=== PATIENT | female | born 1975 | race Hispanic/Latino ===

== ENCOUNTER 2018-12-24 01:09 | Inpatient (IN) ==
[2018-12-24 02:42] LABS: BASO# 0.08 X1000 (0.0-0.2); BASO% 0.5 % (0.0-0.8); EOS# 0.04 X1000 (0.0-0.7); EOS% 0.2 % (0.0-10.0); HEMATOCRIT 24.9 % (37.0-47.0); HEMOGLOBIN 6.3 g/dL (12.0-16.0); IMM GRAN# 0.03 X1000 (0.0-0.04); IMM GRAN% 0.2 % (0.0-0.5); LYMPH# 0.94 X1000 (1.2-3.4); LYMPH% 5.5 % (20.5-51.1); MCHC 25.3 g/dL (33-37); MCV 55.3 FL (81-99); MONO# 0.69 X1000 (0.11-0.59); NEUT# 15.46 X1000 (1.4-6.5); NEUT% 89.6 % (42.2-75.2); PLT 640 X1000 (130-400); RDW 22.4 % (11.5-14.5); WBC 17.24 X1000 (4.8-10.8)
[2018-12-24 02:48] LABS: ESTIMATED GFR > 60
[2018-12-24 02:49] LABS: AGAP 10; ALBUMIN 4.1 g/dL (3.5-5.0); ALKALINE PHOSPHATASE 70 U/L (32-104); BUN 19 mg/dL (8-22); CALCIUM 8.7 mg/dL (8.8-10.2); CHLORIDE 97 mmol/L (98-107); COSMO 289; CREATININE 0.7 mg/dL (0.5-0.9); GOT 10 U/L (10-30); GPT 7 U/L (10-36); SODIUM 133 mmol/L (136-145); TCO2 27 mmol/L (25-35); TOTAL PROTEIN 7.1 g/dL (6.3-8.3)
[2018-12-24 02:53] LABS: GLUCOSE 458 mg/dL (70-104)
[2018-12-24 02:54] LABS: BILIRUBIN URINE NEGATIVE (NEGATIVE); BLOOD URINE 4+ (NEGATIVE); CLARITY SL. CLOUDY (CLEAR); COLOR PINK; KETONE URINE 1+(Small) mg/dL (NEGATIVE); LEUKOCYTES URINE TRACE (NEGATIVE); NITRITE URINE NEGATIVE (NEGATIVE); PROTEIN URINE 1+(30 mg/dL) mg/dL (NEGATIVE); SP GRAVITY URINE 1.005; UROBILINOGEN URINE NORMAL
[2018-12-24 02:56] LABS: URINE RBC TNTC /HPF (<10)
[2018-12-24 02:57] LABS: URINE BACTERIA 4+ /HFP
[2018-12-24 02:58] LABS: URINE CAST NONE SEEN /LPF; URINE CRYSTAL NONE SEEN /HPF; URINE SOURCE CLEAN CATCH; URINE WBC <10 /HPF (<10); URINE YEAST NONE SEEN /HPF
[2018-12-24] MEDS ORDERED: HUMALOG SUBQ ONE (05:19)
--- NOTE | 2018-12-24 06:01 | Diag Imaging Result Doc PS360 ---
EXAM: CT ABD/PELVIS W/IV CONT ONLY HISTORY: abd pain TECHNIQUE: CT abdomen and pelvis with intravenous contrast COMPARISON: None. FINDINGS: No calcified gallstones or adjacent inflammation. Normal liver, spleen, pancreas, adrenal glands, and kidneys. Mild dilatation of the ureters, but no ureteral stones. Normal aorta. The uterus is enlarged measuring at least 9.5 x 9.5 x 13.1 cm. It contains a large mixed density mass measuring at least 6.8 x 8.2 x 9.0 cm. Trace fluid in the pelvis and in the paracolic gutters. Tiny amount of fluid about the liver. The urinary bladder is distended and is normal. No enlarged nodes. IMPRESSION: Enlarged uterus containing a large mixed density mass with trace fluid in the abdomen and pelvis. Further workup recommended. A preliminary report was given at 4:11 AM This exam was performed using automated exposure control, adjustment of mA or kV according to patient size, and/or use of iterative reconstruction technique. Electronically signed by Ronal Ward 12/24/2018 5:59 AM
--- NOTE | 2018-12-24 06:47 | PROVIDER DOCUMENTATION ---
This chart was entered by Juan Carlos Beltrán Scribe, acting as scribe for Delmer Matamoros MD. HPI-Abdominal Pain/GI Problem - General Chief Complaint: Flank Pain Stated Complaint: ABD PAIN Time Seen by Provider: 12/24/18 01:47 Source: patient, family - History of Present Illness-ABD Nature of Presenting Problems: 43 yof presents to the ed with c/o abdominal pain( over appendix) . pt family states "started yesterday but got worse today." pts family states "not the first time this has happened" pt has hx of DM pt is on cycle Abdominal Pain Onset Location: reports: RLQ (over appendix) Pain Radiation: reports: no radiation Quality of Pain: reports: aching Severity in ED: reports: moderate Onset/Duration: reports: 24 hours ago (but got worse today) Timing: reports: still present Activities at Onset: reports: light activity Exposure to sick contacts?: No Modifying Factors: worse with: massage, movement Associated Symptoms: reports: dizziness, nausea, weakness. denies: arm pain, back/neck pain, chest pain, constipation, diarrhea, fever/chills, vomiting Last BM: unsure Dark Stools Present?: reports: none noticed Rectal Bleeding: reports: none Rectal Pain: reports: none Emesis Description: reports: none Bruising or Bleeding Gums?: No Similar Symptoms Previously?: No Recently seen or treated by another doctor?: No Review of Systems - Adult - REVIEW OF SYSTEMS - ADULT Constitutional: denies: chills, fever Eyes: reports: no symptoms reported Ears, Nose, Mouth & Throat: reports: no symptoms reported Cardiovascular: denies: chest pain, palpitations, syncope Respiratory: denies: cough, shortness of breath, wheezing Gastrointestinal: reports: abdominal pain (over appendix). denies: diarrhea, nausea, vomiting Genitourinary: reports: no symptoms reported Musculoskeletal: denies: back pain, neck pain Integumentary: reports: other (yellow color to skin) Neurological: reports: dizziness/vertigo. denies: headache/migraines, numbness Psychiatric: reports: no symptoms reported Endocrine: reports: no symptoms reported Hematologic/Lymphatic: reports: no symptoms reported Allergic/Immunologic: reports: no symptoms reported All Other Systems: Reviewed and Negative Past History - Adult - PAST MEDICAL HISTORY-ADULT Review of Records: reports: Old Records Reviewed, Nursing Assessment Review, Medications Reviewed, Social history reviewed & non-contributory. Major Childhood Illnesses: reports: denies history Cardiovascular: reports: denies history Respiratory: reports: denies history Gastrointestinal: reports: denies history Obstetrical/Gynecological: reports: denies history Genitourinary: reports: denies history Musculoskeletal: reports: denies history Neurological: reports: denies history Endocrine/Immune: reports: denies history Other Conditions: reports: denies history - IMMUNIZATION STATUS Childhood Immunizations: See Nurse Assessment Flu Vaccine: See Nurse Assessment - FAMILY HISTORY Family History: reviewed, not pertinent - SOCIAL HISTORY Living Situation: family Physical Exam-General - PHYSICAL EXAM-ADULT Initial Vital Signs Reviewed: Yes - CONSTITUTIONAL General Appearance: appears well, alert, no apparent distress - EYES Eyes: PERRL/EOMI ("spots on eyes") - HEAD, EARS, NOSE, MOUTH & THROAT HENMT: moist mucous membranes - NECK Neck: non-tender, full range of motion - RESPIRATORY Respiratory: chest non-tender, lungs clear, normal breath sounds - CARDIOVASCULAR Cardiovascular: normal peripheral pulses, regular rate, rhythm - GASTROINTESTINAL (ABDOMEN) Abdominal Exam: normal bowel sounds, non tender, soft, guarding (over appendix) - LYMPHATIC Lymphatic: no adenopathy - MUSCULOSKELETAL Back Exam: normal inspection, no CVA tenderness Extremity: normal range of motion, non-tender, normal gait - SKIN Integumentary: normal turgor, warm/dry, jaundice - NEUROLOGIC Neurologic: grossly normal - PSYCHIATRIC Psych/Mental Status: normal mood/affect, normal thought content, normal thought process, oriented x 3 Progress - PLAN OF CARE/RESULTS Progress/Plan/Lab Results: Vital Signs - 8 hr 12/24/18 01:13 Temperature 98.5 F Pulse Rate 76 Respiratory Rate 19 Blood Pressure 120/73 O2 Sat by Pulse Oximetry 100 Orders Category Date Time Status BLOOD CULTURE [BLDCUL] Stat Lab 12/24/18 01:47 Ordered CBC WITH ELECTRONIC DIFF [HEME] Stat Lab 12/24/18 01:47 Ordered COMPREHENSIVE METABOLIC PANEL [CHEM] Stat Lab 12/24/18 01:47 Ordered TEST-URINE [PREG] Stat Lab 12/24/18 01:58 Uncollected TSH Stat Lab 12/24/18 01:[address] W/POSS RFLX CULT [URINALYSIS] Stat Lab 12/24/18 01:57 Ordered Result Diagrams: 12/24/18 02:02 12/24/18 02:02 - CT/MRI 1 CT Study: Abdomen, Pelvis Impression: Abnormal (9cm uterine mass) Departure - Departure Date of Disposition Decision: 12/24/18 DIAGNOSIS: Uterine mass Disposition: ADMITTED INPATIENT 09 Certified Medical Emergency: Emergent Condition: Stable Referrals and Follow-Ups: None,PCP [Primary Care Provider] - - Critical Care Note This patient required my direct & personal management of CC.: No Attestation - Physician/ EPHRAIM Attestation Patient care was provided by Advanced Practice Provider:: No The physician spent face to face time with patient:: Yes Advanced Practice Provider documentation review:: Supervising physician onsite and consulted in the evaluation and care of this patient. The physician did have a face to face encounter with the patient. This chart was documented by the indicated scribe, (Juan Carlos Beltrán, Scribe) and accurately reflects the services I performed and decisions made by me, Delmer Matamoros MD, as attested by the provider's signature.
[2018-12-24] MEDS ORDERED: NORCO-5 PO PRN ×2 (07:48→12:42)
[2018-12-24] MEDS ORDERED: NS 1,000 ML IV ONE (08:45)
[2018-12-24] MEDS ORDERED: LANTUS INSULIN SUBQ SCH (09:00)
[2018-12-24 09:32] LABS: HEMOGLOBIN A1C 13.7 % (4.8-6.0)
--- NOTE | 2018-12-24 10:09 | Diag Imaging Result Doc PS360 ---
EXAM: CHEST-1 VIEW HISTORY: R/O SEPSIS TECHNIQUE: Chest single view COMPARISON: None. FINDINGS: The lungs are well expanded. The heart is not enlarged. The vessels are not distended. There are no infiltrates. No effusion identified. IMPRESSION: No pneumonia Electronically signed by Ronal Ward 12/24/2018 10:07 AM
--- NOTE | 2018-12-24 10:12 | HISTORY AND PHYSICAL ---
ADMITTING PHYSICIAN: Melina Jones DO CHIEF COMPLAINT: Abdominal pain and vaginal bleeding. HISTORY OF PRESENT ILLNESS: This 43-year-old G3, P0, 3-0-3 presented to the emergency room with complaint of right lower quadrant pain and heavy vaginal bleeding. She is currently on her period, which started on Sunday, 12/22. She has a history of very heavy menses for which she has to change pads every hour during her heaviest days. She states her menses occurs monthly and lasts for approximately 7 days. She describes the abdominal pain as a pulling pain and pressure located mostly in her right lower quadrant. Walking worsens the pain, and nothing alleviates the pain. Upon arrival, CT of the abdomen showed a large uterine mass of which the patient has no previous knowledge of. Her hemoglobin upon arrival was 6.3. She does note dizziness and lightheadedness and worsens with walking. She denies any nausea or vomiting. She denies any fever or chills. She does complain of yellow skin and itching on her feet that has lasted for approximately 8 months. She is a poorly controlled diabetic, for which she occasionally will take metformin. She denies any other medical complaints. REVIEW OF SYSTEMS: Negative except as mentioned in the HPI. OBSTETRIC HISTORY: G3, P0, 3-0-3. G1 was a at 36 weeks, female, 8 pounds 10 ounces, complicated by diabetes (11/09/1998). G2 repeat at 36 weeks, male 6 pounds complicated by labor, non- reassuring heart tracings in (2003). G3 repeat at 34 weeks secondary to P PROM, male, 4 pounds (2006). GYNECOLOGIC HISTORY: She states her last Pap smear was in 2006 after the of her last child. She denies any history of abnormal Pap smear. She denies any history of sexually transmitted infections. She is currently sexually active. Her last menstrual period was in 1988. She is currently still menstruating. She has a history of heavy menses, but it does occur monthly, usually last 5 to 7 days and she has to change 1 pad an hour. She denies anything for contraception. PAST MEDICAL HISTORY: Noncompliant. Type 2 diabetes. MEDICATIONS: Metformin. She states she takes it infrequently. She has not taken it in months. ALLERGIES: No known drug allergies. SURGICAL HISTORY: Low transverse section x3. SOCIAL HISTORY: She denies any tobacco, alcohol, or drug use. FAMILY HISTORY: Positive for diabetes in her mother and her siblings, and hypertension in her siblings. PHYSICAL EXAMINATION: VITAL SIGNS: Temperature 98.5 degrees, heart rate 76, blood pressure 120/73, and O2 saturation 100% on room air. Respiratory rate 19. GENERAL: Alert and no acute distress. Diffuse jaundice of skin. HEENT: Normocephalic, atraumatic. Pale conjunctivae. HEART: Regular rate and rhythm. LUNGS: Clear to auscultation bilaterally. ABDOMEN: Soft. Mass palpated to the right of the umbilicus. There is tenderness to palpation in the right lower quadrant. No rebound or guarding. PELVIC: Bimanual exam performed at bedside. Old dark blood coming from vagina. Uterus is enlarged to the right of the umbilicus, a fixed mass solid to palpation. EXTREMITIES: No clubbing, cyanosis, or edema. LABORATORY DATA: White blood cell count 17.2, hemoglobin 6.3, hematocrit 24.9, and platelets 640,000. Sodium 133, potassium 4, chloride 97, CO2 27, BUN 19, and creatinine 0.7. Fingerstick blood sugar 458. AST 10, ALT 7, and lipase 32. Amylase 20, TSH 2.4, UPT negative. Quantitative beta HCG less than 1. T bilirubin 0.3. Urinalysis +1 ketone, negative nitrites. IMAGING: CT abdomen with abdomen and pelvis with IV contrast. The uterus is enlarged measuring at least 9.5 x 9.5 x 13.1 cm and contains a large mixed density mass measuring at least 6.8 x 8.2 x 9 mm. Trace fluid in the pelvis in the pericolic gutters. A tiny amount of fluid around the liver. The urinary bladder is distended and is normal. No enlarged lymph nodes seen on imaging. ASSESSMENT AND PLAN: A 43-year-old G3, P0, 3-0-3 with uterine mass, menorrhagia to anemia, poorly- controlled type 2 diabetes, leukocytosis and jaundice. 1. We will admit to med/surg floor. 2. We will continue vaginal bleeding and low hemoglobin. We will transfuse 2 units of packed red blood cells. Consent obtained from the patient. 3. We will order hemoglobin A1c to assess the control of blood sugar. 4. We will consult hospitalist for management of type 2 diabetes and workup of jaundice. 5. CT findings concerning for malignancy. We will consider transferring patient for higher level of care after she is stabilized. 5. Elevated WBC> blood cx pending, patient afebrile, UA negative MTDD
[2018-12-24] MEDS ORDERED: ROCEPHIN 1 GM in NS 50 ML IV SCH (10:15)
[2018-12-24 10:26] LABS: INR 0.98; PROTIME 13.5 Seconds (11.0-16.0)
[2018-12-24 10:27] LABS: PTT 26.9 Seconds (22.3-41.8)
[2018-12-24] MEDS ORDERED: NS 560 ML IV SCH (10:30)
[2018-12-24] MEDS ORDERED: HUMULIN R (PARKWAY) SUBQ SCH (11:00)
[2018-12-24] MEDS ORDERED: NS 500 ML IV ONE (11:13)
[2018-12-24] MEDS ORDERED: EPINEPHRINE 8 MG in D5W 250 ML IV SCH ×2 (11:15→13:00)
[2018-12-24] MEDS ORDERED: LEVOPHED 8 MG in D5 1/2 NS 250 ML IV SCH ×3 (11:15→16:00)
[2018-12-24] MEDS ORDERED: PITRESSIN 40 UNIT in NS 100 ML IV SCH ×2 (11:15→13:00)
[2018-12-24] MEDS ORDERED: NS 2,000 ML ONE (11:59)
[2018-12-24] MEDS ORDERED: NS 560 ML IV ONE (12:45)
[2018-12-24] MEDS ORDERED: D5 1/2 NS 250 ML ONE (13:55)
[2018-12-24] MEDS: NS 1,000 ML IV SCH (15:27)
[2018-12-24] MEDS: HUMULIN R SUBQ SCH ×2 (16:26→20:07)
[2018-12-24 16:44] LABS: BASO# 0.05 X1000 (0.0-0.2); BASO% 0.5 % (0.0-0.8); EOS# 0.13 X1000 (0.0-0.7); EOS% 1.2 % (0.0-10.0); HEMATOCRIT 30.8 % (37.0-47.0); HEMOGLOBIN 8.6 g/dL (12.0-16.0); LYMPH# 1.85 X1000 (1.2-3.4); LYMPH% 16.7 % (20.5-51.1); MCH 17.5 PG (27-31); MCHC 27.9 g/dL (33-37); MCV 62.6 FL (81-99); MONO# 1.01 X1000 (0.11-0.59); MONO% 9.1 % (1.7-9.3); NEUT# 8.06 X1000 (1.4-6.5); NEUT% 72.5 % (42.2-75.2); PLT 631 X1000 (130-400); RBC 4.92 XMIL (4.2-5.4); RDW 27.8 % (11.5-14.5)
[2018-12-24 17:59] LABS: EOS 1 % (1-10); LARGE PLATELETS OCCASIONAL; LYMPHS 23 % (21-51); MONO 8 % (1-9); SEGS 68 % (42-75)
[2018-12-24 18:00] LABS: ANISOCYTOSIS 1+; MICROCYTOSIS 1+; TARGET CELLS OCCASIONAL
--- NOTE | 2018-12-24 19:03 | PROGRESS NOTE ---
DATE: 12/24/2018 SUBJECTIVE: Today Ms. Marte referred to be feeling fairly the same. She was transferred from [place] for a higher level of care. Ms. Marte refers to have massive vaginal bleeding and a lot of pain since yesterday. She went to the emergency department at [place]. She was evaluated and admitted because of acute anemia with hemodynamic instability. Briefly, Ms. Marte is a 43-year-old female with a history of diabetes who is not very compliant with medications. She also has a history of menorrhagia. Last Pap smear was about 10 years ago. She does not follow up with any oncologist. Upon presenting to the emergency department, a CT scan did reveal enlarged uterus containing a large mid-density mass with trace fluid in the abdomen and pelvis, recommending that we should to follow up with further workup. Ms. Marte became hypotensive sometime during the [place] stay, so she was transferred over here for higher level of care. OBJECTIVE: Her current vital signs: Blood pressure is 142/78, pulse of 70, respirations 15, temperature 97.7 degrees. On general exam, Ms. Marte is a 43-year-old female. She is in bed, no distress. Mucosa is pale, anicteric and acyanotic. Neck is supple. Chest is clear to auscultation.Cardiovascular: Regular rate and rhythm. Abdomen is soft. There is some distention in the lower abdomen and tenderness. There is a palpable mass from the lower abdomen almost at the umbilical level. It is tender but it does not feel irregular. Extremities: No pedal edema. 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 LABORATORY DATA: Hemoglobin is 6.3, platelet count is 640,000. Chemistry is also reviewed. The patient's glucose was 458. ASSESSMENT AND PLAN: 1. Hypotension, most likely due to hypovolemia. The patient was started on Levophed and is also on fluid resuscitation. 2. Acute anemia from vaginal bleeding. The patient is getting transfusion. 3. Microcytic anemia, most likely due to chronic blood loss from the genitourinary tract, with possible underlying iron deficiency. 4. Uncontrolled diabetes mellitus with A1c of 13.7. According to Ms. Marte, she has been very noncompliant with her metformin. With an A1c of above 10, she is going to be needing insulin at least for the short term for adequate glycemic control. She has been started on insulin regimen. 5. Leukocytosis, presumably reactive. I think blood cultures have all been done and the patient has been started on antibiotics until we have the culture results. 6. Thrombocytosis. I think this is reactive to underlying iron deficiency. 7. Uterine mass of unclear etiology. This is being followed up by Obstetrics/Gynecology. cc: Jason Payne MD
--- NOTE | 2018-12-24 22:33 | HISTORY AND PHYSICAL ---
CHIEF COMPLAINT: Flank pain. HISTORY OF PRESENT ILLNESS: The patient is a 43-year-old female, who presented to [facility]'s ER with abdominal pain on her right side. She initially thought it might be her appendix. She apparently started her menses yesterday and the pain got worse. This is not the first time that she has had this type of pain. Denies any fevers or chills. REVIEW OF SYSTEMS: She has had right-sided abdominal pain over her appendix. No real radiation. Hurts to move. Worsened when her menstrual period started. It has been worse over the past 24 hours. Denies any headaches, blurred vision. Denies nausea. Denies hematochezia, melena, hematemesis. Denies skin rashes, weight loss, weight gain. Denies any focal weakness. Denies chest pain, palpitations. Denies any shortness of breath. PAST MEDICAL HISTORY: No chronic active medical problems. MEDICATIONS: None. ALLERGIES: None. FAMILY HISTORY: Noncontributory. SOCIAL HISTORY: She lives at home with her family. She does not smoke, drink, or use illicit substances. PHYSICAL EXAMINATION: VITAL SIGNS: Reviewed. Temperature 98 degrees, pulse 70s to 90, respiratory 19 to 24, BP 80 and 90 systolic. LABORATORY: White count 17, platelets 640,000. Glucose 458, sodium 133. ASSESSMENT: 1. Sepsis of undetermined origin. 2. Leukocytosis. 3. Hypotension. 4. Diabetes. Unclear if this is new onset. It does appear as though the family acknowledges that she may have been told she has diabetes previously. 5. Hyponatremia. 6. Thrombocytosis. 7. Uterine mass, which certainly is concerning. PLAN: I am going to admit the patient to the hospital, actually transfer her to [facility] to the ICU as she currently is requiring Levophed to keep her blood pressures up. I am going to place her on antibiotics, IV fluids. Gynecology has been consulted regarding the uterine mass. Will place her on Levophed. Will use sliding scale insulin, as well as place her Lantus, and will follow. cc: MD Jason Hubbard MD
[2018-12-25] MEDS: NS 1,000 ML IV SCH (05:08)
[2018-12-25] MEDS: HUMULIN R SUBQ SCH ×4 (06:11→22:10)
[2018-12-25 06:58] LABS: HEMATOCRIT 31.1 % (37.0-47.0); HEMOGLOBIN 9.1 g/dL (12.0-16.0); MCHC 29.3 g/dL (33-37); MCV 64.9 FL (81-99); PLT 476 X1000 (130-400); RBC 4.79 XMIL (4.2-5.4); RDW 27.3 % (11.5-14.5); WBC 9.39 X1000 (4.8-10.8)
[2018-12-25 07:38] LABS: AGAP 13; ALB/GLOB RATIO 1.1; ALKALINE PHOSPHATASE 54 U/L (32-104); BUN 10 mg/dL (8-22); CALCIUM 7.1 mg/dL (8.8-10.2); CHLORIDE 110 mmol/L (98-107); COSMO 289; CREATININE 0.5 mg/dL (0.5-0.9); ESTIMATED GFR > 60; GLUCOSE 160 mg/dL (70-104); GOT 12 U/L (10-30); GPT 7 U/L (10-36); POTASSIUM 3.5 mmol/L (3.5-5.1); SODIUM 144 mmol/L (136-145); TCO2 21 mmol/L (25-35); TOTAL BILIRUBIN 0.38 mg/dL (0.20-1.00); TOTAL PROTEIN 5.7 g/dL (6.3-8.3)
[2018-12-25] MEDS ORDERED: LANTUS INSULIN SUBQ SCH (09:00)
[2018-12-25] MEDS ORDERED: ROCEPHIN 1 GM in NS 50 ML IV SCH (10:00)
[2018-12-25 11:09] LABS: IRON SATURATION 6 %; TIBC 332 ug/dL; TOTAL IRON 20 ug/dL (49-151); UNBOUND IRON 312 ug/dL (112-346)
[2018-12-25] MEDS: FERROUS SULFATE PO SCH ×2 (11:10→20:25)
[2018-12-25] MEDS: PERICOLACE PO SCH ×2 (11:10→20:26)
--- NOTE | 2018-12-25 11:24 | PROGRESS NOTE ---
DATE: 12/25/2018 SUBJECTIVE: Today Ms. Matre refers to be feeling a whole lot better. Less fatigue, more energized. She is status post 2 PRBC transfusions. She also refers that the vaginal bleed has substantially improved. OBJECTIVE: Vital signs: Blood pressure is 105/63 off pressors, pulse is 65, respiration is 11, temperature 97.7 degrees, patient is saturating 100% on room air. General exam: Ms. Marte is a 43-year-old female. She is in bed not in distress. HEENT: Mucosa is slightly pale. Anicteric. Acyanotic. Neck: Supple. Chest: Good air entry bilateral. There was no crepitations, no rhonchi. Cardiovascular: Regular rate and rhythm. No murmurs, no rubs, no gallops. GI/Abdomen: Soft. There is a palpable mass in the lower abdomen up to the umbilicus. Extremities: No pedal edema. SOUND ASSISTANT: Patient is awake, alert and oriented. LABORATORY DATA: Hemoglobin is up to 9.1 from 6.3 yesterday. The platelet count is down to 476. WBC is normal. Chemistry is within normal range. Glucose is down to 160. ASSESSMENT: 1. Hypovolemic shock, improved. 2. Anemia of acute blood loss from vaginal bleeding. Patient is status post 2 packed red blood cell transfusion. Hemoglobin and hematocrit are now stabilized. 3. Microcytic anemia, most likely due to underlying iron deficiency. We will check the iron studies and start oral replacement. 4. Uncontrolled diabetes mellitus with presenting A1c of 13.7. The patient is currently on insulin regimen. Glucose levels are a lot better now. 5. Leukocytosis, presumably reactive, improved. 6. Thrombocytosis secondary to underlying iron deficiency. 7. Uterine mass of unclear etiology. The patient is being followed up by Obstetrics and Gynecology. 8. Suspected urinary tract infection. The patient is on antimicrobial coverage. We are still pending the culture reports. PLAN: So, in general, I think Ms. Marte is doing a lot better. She feels stronger. She is not having any massive ongoing bleeding. She is off the pressors and hemoglobin is fairly stable. We are going to transfer her from the ICU to a regular medical floor. We will continue with her current insulin regimen, and we will await recommendations from ROLL TENDER. From medical standpoint, we think Ms. Marte will be okay for discharge once it is okay with [facility]. cc: Jason Payne MD I spoke with the fish hatchery laborer. Patient has been accepted to [facility] for higher level of care. MTDD
[2018-12-25] MEDS ORDERED: THERA M PLUS PO SCH (12:08)
[2018-12-25 12:27] LABS: HEPATITIS PROFILE ACUTE SEE COMMENTS
--- NOTE | 2018-12-25 12:29 | OB/GYN PROGRESS NOTE ---
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[employer] Progress Note: Vital Signs - 24 hr 12/24/18 12:30 12/24/18 13:15 12/24/18 13:50 Temperature Pulse Rate 72 77 69 Respiratory Rate 16 15 13 Blood Pressure 95/53 104/60 90/51 O2 Sat by Pulse Oximetry 98 100 99 12/24/18 14:00 12/24/18 14:37 12/24/18 14:45 Temperature 98.4 F Pulse Rate 69 71 71 Respiratory Rate 14 14 14 Blood Pressure 100/69 106/61 O2 Sat by Pulse Oximetry 100 100 100 12/24/18 15:02 12/24/18 15:17 12/24/18 15:32 Temperature Pulse Rate 73 69 65 Respiratory Rate 16 13 12 Blood Pressure 101/59 93/59 96/57 O2 Sat by Pulse Oximetry 100 100 100 12/24/18 15:47 12/24/18 15:48 12/24/18 16:00 Temperature 98.2 F Pulse Rate 66 72 73 Respiratory Rate 13 13 16 Blood Pressure 80/39 77/44 101/59 O2 Sat by Pulse Oximetry 100 100 100 12/24/18 16:03 12/24/18 16:17 12/24/18 16:20 Temperature 98.2 F Pulse Rate 71 70 66 Respiratory Rate 17 19 17 Blood Pressure 155/84 155/97 160/86 O2 Sat by Pulse Oximetry 100 100 100 12/24/18 16:22 12/24/18 16:31 12/24/18 16:32 Temperature Pulse Rate 66 67 Respiratory Rate 15 14 Blood Pressure 160/86 119/72 O2 Sat by Pulse Oximetry 100 100 100 12/24/18 16:35 12/24/18 16:36 12/24/18 16:47 Temperature 97.7 F Pulse Rate 69 70 72 Respiratory Rate 15 15 21 Blood Pressure 142/78 142/78 111/73 O2 Sat by Pulse Oximetry 99 99 100 12/24/18 17:02 12/24/18 17:17 12/24/18 17:32 Temperature Pulse Rate 73 80 73 Respiratory Rate 16 15 13 Blood Pressure 131/77 112/70 107/67 O2 Sat by Pulse Oximetry 100 100 100 12/24/18 17:47 12/24/18 18:02 12/24/18 18:17 Temperature Pulse Rate 68 73 72 Respiratory Rate 12 16 14 Blood Pressure 87/52 98/58 90/56 O2 Sat by Pulse Oximetry 100 100 100 12/24/18 18:32 12/24/18 18:33 12/24/18 18:47 Temperature Pulse Rate 67 67 72 Respiratory Rate 16 13 15 Blood Pressure 86/54 106/64 O2 Sat by Pulse Oximetry 99 100 100 12/24/18 18:51 12/24/18 18:52 12/24/18 19:02 Temperature 98.2 F Pulse Rate 70 69 68 Respiratory Rate 17 15 13 Blood Pressure 106/64 103/66 99/63 O2 Sat by Pulse Oximetry 100 100 100 12/24/18 19:17 12/24/18 19:32 12/24/18 19:47 Temperature Pulse Rate 72 66 66 Respiratory Rate 16 14 14 Blood Pressure 119/73 98/62 94/60 O2 Sat by Pulse Oximetry 100 100 98 12/24/18 19:52 12/24/18 20:00 12/24/18 20:02 Temperature 98.2 F Pulse Rate 67 66 Respiratory Rate 12 13 Blood Pressure 98/58 92/59 O2 Sat by Pulse Oximetry 99 98 98 12/24/18 20:03 12/24/18 20:17 12/24/18 20:32 Temperature Pulse Rate 78 67 66 Respiratory Rate 16 13 12 Blood Pressure 103/63 96/58 O2 Sat by Pulse Oximetry 100 99 99 12/24/18 20:47 12/24/18 21:02 12/24/18 21:17 Temperature Pulse Rate 66 71 75 Respiratory Rate 12 17 14 Blood Pressure 98/60 104/67 112/72 O2 Sat by Pulse Oximetry 100 100 100 12/24/18 21:32 12/24/18 21:47 12/24/18 22:00 Temperature Pulse Rate 77 76 75 Respiratory Rate 28 H 18 15 Blood Pressure 106/64 110/65 O2 Sat by Pulse Oximetry 100 100 100 12/24/18 22:02 12/24/18 22:17 12/24/18 22:32 Temperature Pulse Rate 76 72 76 Respiratory Rate 20 0 L 17 Blood Pressure 111/66 105/61 97/58 O2 Sat by Pulse Oximetry 100 98 99 12/24/18 22:47 12/24/18 22:48 12/24/18 23:02 Temperature Pulse Rate 69 69 69 Respiratory Rate 15 15 12 Blood Pressure 88/51 86/52 O2 Sat by Pulse Oximetry 99 99 100 12/24/18 23:17 12/24/18 23:32 12/24/18 23:47 Temperature Pulse Rate 70 73 67 Respiratory Rate 12 12 12 Blood Pressure 85/53 99/56 93/56 O2 Sat by Pulse Oximetry 100 100 98 12/25/18 00:00 12/25/18 00:02 12/25/18 00:03 Temperature 98.8 F Pulse Rate 70 68 69 Respiratory Rate 11 L 14 14 Blood Pressure 86/52 97/52 O2 Sat by Pulse Oximetry 99 99 96 12/25/18 00:17 12/25/18 00:32 12/25/18 00:47 Temperature Pulse Rate 67 66 65 Respiratory Rate 13 16 11 L Blood Pressure 91/54 96/60 86/51 O2 Sat by Pulse Oximetry 100 99 98 12/25/18 01:02 12/25/18 01:17 12/25/18 01:32 Temperature Pulse Rate 66 65 67 Respiratory Rate 12 9 L 10 L Blood Pressure 81/51 98/61 101/59 O2 Sat by Pulse Oximetry 98 99 100 12/25/18 01:47 12/25/18 01:54 12/25/18 02:00 Temperature Pulse Rate 64 64 62 Respiratory Rate 14 13 9 L Blood Pressure 88/56 88/56 O2 Sat by Pulse Oximetry 98 97 99 12/25/18 02:02 12/25/18 02:17 12/25/18 02:32 Temperature Pulse Rate 64 61 71 Respiratory Rate 11 L 12 14 Blood Pressure 91/52 92/52 91/60 O2 Sat by Pulse Oximetry 98 99 100 12/25/18 02:47 12/25/18 03:02 12/25/18 03:17 Temperature Pulse Rate 61 61 65 Respiratory Rate 15 10 L 8 L Blood Pressure 92/54 88/50 105/65 O2 Sat by Pulse Oximetry 100 99 100 12/25/18 03:18 12/25/18 03:32 12/25/18 03:34 Temperature 97.3 F L Pulse Rate 71 65 61 Respiratory Rate 5 L 6 L 10 L Blood Pressure 104/63 88/50 O2 Sat by Pulse Oximetry 95 100 99 12/25/18 03:47 12/25/18 04:00 12/25/18 04:02 Temperature Pulse Rate 61 63 67 Respiratory Rate 6 L 7 L 10 L Blood Pressure 97/59 85/51 O2 Sat by Pulse Oximetry 100 100 100 12/25/18 04:13 12/25/18 04:17 12/25/18 04:32 Temperature Pulse Rate 62 62 70 Respiratory Rate 9 L 10 L 14 Blood Pressure 96/58 94/59 120/69 O2 Sat by Pulse Oximetry 100 100 100 12/25/18 04:47 12/25/18 05:02 12/25/18 05:17 Temperature Pulse Rate 69 77 64 Respiratory Rate 2 L 15 15 Blood Pressure 121/77 122/75 100/59 O2 Sat by Pulse Oximetry 100 100 100 12/25/18 05:32 12/25/18 05:47 12/25/18 06:00 Temperature Pulse Rate 67 68 65 Respiratory Rate 10 L 6 L 9 L Blood Pressure 119/69 97/62 O2 Sat by Pulse Oximetry 100 100 100 12/25/18 06:02 12/25/18 06:17 12/25/18 06:32 Temperature Pulse Rate 63 62 62 Respiratory Rate 12 11 L 12 Blood Pressure 100/65 89/56 87/53 O2 Sat by Pulse Oximetry 100 100 100 12/25/18 06:47 12/25/18 07:02 12/25/18 07:17 Temperature Pulse Rate 62 67 62 Respiratory Rate 11 L 12 11 L Blood Pressure 100/60 109/69 101/63 O2 Sat by Pulse Oximetry 100 100 100 12/25/18 07:32 12/25/18 07:47 12/25/18 08:00 Temperature 97.9 F Pulse Rate 62 62 62 Respiratory Rate 11 L 11 L 11 L Blood Pressure 101/61 99/60 91/55 O2 Sat by Pulse Oximetry 100 100 100 12/25/18 08:02 12/25/18 08:17 12/25/18 08:32 Temperature 97.9 F Pulse Rate 62 65 70 Respiratory Rate 11 L 7 L 11 L Blood Pressure 91/55 105/63 116/72 O2 Sat by Pulse Oximetry 100 100 100 12/25/18 08:40 12/25/18 09:02 12/25/18 10:02 Temperature Pulse Rate 71 68 Respiratory Rate 21 16 Blood Pressure 128/74 117/76 O2 Sat by Pulse Oximetry 100 100 100 12/25/18 10:32 12/25/18 11:02 12/25/18 11:32 Temperature Pulse Rate 74 72 69 Respiratory Rate 17 18 20 Blood Pressure 116/73 122/77 125/77 O2 Sat by Pulse Oximetry 100 100 12/25/18 12:04 Temperature Pulse Rate 70 Respiratory Rate Blood Pressure O2 Sat by Pulse Oximetry Laboratory Results - last 24 hr 12/24/18 12/24/18 12/24/18 00:21 01:57 10:00 WBC RBC Hgb Hct MCV MCH MCHC RDW Std Deviation Plt Count MPV Immature Gran % (Auto) Neut % (Auto) Lymph % (Auto) Wilson % (Auto) Eos % (Auto) Baso % (Auto) Immature Gran # (Auto) Neut # (Auto) Lymph # (Auto) Wilson # (Auto) Eos # (Auto) Baso # (Auto) Segmented Neutrophils Lymphocytes Monocytes Eosinophils Large Platelets Anisocytosis Microcytosis Target Cells Fibrinogen 362.0 Sodium Potassium Chloride Carbon Dioxide Anion Gap BUN Creatinine Estimated GFR/1.73 m2 BUN/Creatinine Ratio Glucose POC Glucose Calculated Osmolality Calcium Iron TIBC % Saturation Unsat Iron Binding Total Bilirubin AST ALT Alkaline Phosphatase Total Protein Albumin Globulin Albumin/Globulin Ratio Plasma Lactate Tumor Marker AFP CA 125 Antigen Folate Ur Chlamydia/GC DNA SEE COMMENTS Blood Type A POSITIVE Antibody Screen NEGATIVE Crossmatch See Detail 12/24/18 12/24/18 12/24/18 12:05 16:25 16:28 WBC 11.10 H RBC 4.92 Hgb 8.6 L D Hct 30.8 L D MCV 62.6 L MCH 17.5 L MCHC 27.9 L RDW Std Deviation 27.8 H Plt Count 631 H MPV Not Reportable Immature Gran % (Auto) 0.0 Neut % (Auto) 72.5 Lymph % (Auto) 16.7 L Wilson % (Auto) 9.1 Eos % (Auto) 1.2 Baso % (Auto) 0.5 Immature Gran # (Auto) 0.00 Neut # (Auto) 8.06 H Lymph # (Auto) 1.85 Wilson # (Auto) 1.01 H Eos # (Auto) 0.13 Baso # (Auto) 0.05 Segmented Neutrophils 68 Lymphocytes 23 Monocytes 8 Eosinophils 1 Large Platelets OCCASIONAL Anisocytosis 1+ Microcytosis 1+ Target Cells OCCASIONAL Fibrinogen Sodium Potassium Chloride Carbon Dioxide Anion Gap BUN Creatinine Estimated GFR/1.73 m2 BUN/Creatinine Ratio Glucose POC Glucose 125 H D Calculated Osmolality Calcium Iron TIBC % Saturation Unsat Iron Binding Total Bilirubin AST ALT Alkaline Phosphatase Total Protein Albumin Globulin Albumin/Globulin Ratio Plasma Lactate 1.0 Tumor Marker AFP CA 125 Antigen Folate Ur Chlamydia/GC DNA Blood Type Antibody Screen Crossmatch 12/24/18 12/24/18 12/24/18 16:28 16:28 16:28 WBC RBC Hgb Hct MCV MCH MCHC RDW Std Deviation Plt Count MPV Immature Gran % (Auto) Neut % (Auto) Lymph % (Auto) Wilson % (Auto) Eos % (Auto) Baso % (Auto) Immature Gran # (Auto) Neut # (Auto) Lymph # (Auto) Wilson # (Auto) Eos # (Auto) Baso # (Auto) Segmented Neutrophils Lymphocytes Monocytes Eosinophils Large Platelets Anisocytosis Microcytosis Target Cells Fibrinogen Sodium Potassium Chloride Carbon Dioxide Anion Gap BUN Creatinine Estimated GFR/1.73 m2 BUN/Creatinine Ratio Glucose POC Glucose Calculated Osmolality Calcium Iron TIBC % Saturation Unsat Iron Binding Total Bilirubin AST ALT Alkaline Phosphatase Total Protein Albumin Globulin Albumin/Globulin Ratio Plasma Lactate 1.7 Tumor Marker AFP SEE COMMENTS CA 125 Antigen SEE COMMENTS Folate Ur Chlamydia/GC DNA Blood Type Antibody Screen Crossmatch 12/24/18 12/25/18 12/25/18 20:04 04:49 05:00 WBC RBC Hgb Hct MCV MCH MCHC RDW Std Deviation Plt Count MPV Immature Gran % (Auto) Neut % (Auto) Lymph % (Auto) Wilson % (Auto) Eos % (Auto) Baso % (Auto) Immature Gran # (Auto) Neut # (Auto) Lymph # (Auto) Wilson # (Auto) Eos # (Auto) Baso # (Auto) Segmented Neutrophils Lymphocytes Monocytes Eosinophils Large Platelets Anisocytosis Microcytosis Target Cells Fibrinogen Sodium 144 Potassium 3.5 Chloride 110 H Carbon Dioxide 21 L Anion Gap 13 BUN 10 Creatinine 0.5 Estimated GFR/1.73 m2 > 60 BUN/Creatinine Ratio 20 Glucose 160 H D POC Glucose 151 H 161 H Calculated Osmolality 289 Calcium 7.1 L D Iron TIBC % Saturation Unsat Iron Binding Total Bilirubin 0.38 AST 12 ALT 7 L Alkaline Phosphatase 54 Total Protein 5.7 L Albumin 3.0 L Globulin 2.7 Albumin/Globulin Ratio 1.1 Plasma Lactate Tumor Marker AFP CA 125 Antigen Folate Ur Chlamydia/GC DNA Blood Type Antibody Screen Crossmatch 12/25/18 12/25/18 12/25/18 05:00 10:35 10:35 WBC 9.39 RBC 4.79 Hgb 9.1 L Hct 31.1 L MCV 64.9 L MCH 19.0 L MCHC 29.3 L RDW Std Deviation 27.3 H Plt Count 476 H MPV Immature Gran % (Auto) Neut % (Auto) Lymph % (Auto) Wilson % (Auto) Eos % (Auto) Baso % (Auto) Immature Gran # (Auto) Neut # (Auto) Lymph # (Auto) Wilson # (Auto) Eos # (Auto) Baso # (Auto) Segmented Neutrophils Lymphocytes Monocytes Eosinophils Large Platelets Anisocytosis Microcytosis Target Cells Fibrinogen Sodium Potassium Chloride Carbon Dioxide Anion Gap BUN Creatinine Estimated GFR/1.73 m2 BUN/Creatinine Ratio Glucose POC Glucose Calculated Osmolality Calcium Iron 20 L TIBC 332 % Saturation 6 Unsat Iron Binding 312 Total Bilirubin AST ALT Alkaline Phosphatase Total Protein Albumin Globulin Albumin/Globulin Ratio Plasma Lactate Tumor Marker AFP CA 125 Antigen Folate 27.3 Ur Chlamydia/GC DNA Blood Type Antibody Screen Crossmatch 12/25/18 10:55 WBC RBC Hgb Hct MCV MCH MCHC RDW Std Deviation Plt Count MPV Immature Gran % (Auto) Neut % (Auto) Lymph % (Auto) Wilson % (Auto) Eos % (Auto) Baso % (Auto) Immature Gran # (Auto) Neut # (Auto) Lymph # (Auto) Wilson # (Auto) Eos # (Auto) Baso # (Auto) Segmented Neutrophils Lymphocytes Monocytes Eosinophils Large Platelets Anisocytosis Microcytosis Target Cells Fibrinogen Sodium Potassium Chloride Carbon Dioxide Anion Gap BUN Creatinine Estimated GFR/1.73 m2 BUN/Creatinine Ratio Glucose POC Glucose 196 H Calculated Osmolality Calcium Iron TIBC % Saturation Unsat Iron Binding Total Bilirubin AST ALT Alkaline Phosphatase Total Protein Albumin Globulin Albumin/Globulin Ratio Plasma Lactate Tumor Marker AFP CA 125 Antigen Folate Ur Chlamydia/GC DNA Blood Type Antibody Screen Crossmatch 43 yo with uterine mass, vaginal bleeding, anemia, poorly controlled DM- 2, UTI Patient seen and examined. Denies any abdominal pain. She states vaginal bleeding has decreased since yesterday. She has just been transferred out of the ICU. She is s/p 2 uPRBCs. She has some mild nausea, but is tolerating a diabetic diet. She still notes some dizziness with standing/walking. She denies any fever/chills. Physical Exam-General - PHYSICAL EXAM-ADULT Initial Vital Signs Reviewed: Yes - CONSTITUTIONAL General Appearance: appears well, alert, no apparent distress, other (jaundice) - EYES Eyes: PERRL/EOMI, pale conjunctivae - HEAD, EARS, NOSE, MOUTH & THROAT HENMT: normocephalic/atraumatic - RESPIRATORY Respiratory: lungs clear, normal breath sounds, no respiratory distress - CARDIOVASCULAR Cardiovascular: regular rate, rhythm - GASTROINTESTINAL (ABDOMEN) Abdominal Exam: normal bowel sounds, soft, other (TTP in RLQ, solid mass palpated in RLQ at umbilicus) - MUSCULOSKELETAL Extremity: normal range of motion, non-tender, no pedal edema - PSYCHIATRIC Psych/Mental Status: normal mood/affect Assessment/Plan - Problem List Patient Problems: Current Active Problems Problem Status Onset Mass of uterus Acute - Assessment Assessment: 43 yo with uterine mass, vaginal bleeding, anemia, poorly controlled DM- 2, UTI 1. HD stable, s/p 2uPRBCs, vaginal bleeding decreased 2. CT findings of uterine mass concerning for malignancy, recommend transfer to [facility], storehouse clerk-onc when patient stable from medicine standpoint 3. Rocephin D#2 for UTI, urine cx gram neg rods, final pending 4. BG < 200 today, A1C 13, Appreciate hospitalist mgmt of insulin 5. Ferrous sulfate PO for anemia 6. Discussed with patient plan to transfer to [facility] for a storehouse clerk-onc consult, she agrees with plan
[2018-12-25 13:07] LABS: FERRITIN 18 ng/mL (13-150)
--- NOTE | 2018-12-25 14:02 | OB/GYN PROGRESS NOTE ---
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: Vital Signs - 24 hr 12/24/18 14:37 12/24/18 14:45 12/24/18 15:02 Temperature Pulse Rate 71 71 73 Respiratory Rate 14 14 16 Blood Pressure 106/61 101/59 O2 Sat by Pulse Oximetry 100 100 100 12/24/18 15:17 12/24/18 15:32 12/24/18 15:47 Temperature Pulse Rate 69 65 66 Respiratory Rate 13 12 13 Blood Pressure 93/59 96/57 80/39 O2 Sat by Pulse Oximetry 100 100 100 12/24/18 15:48 12/24/18 16:00 12/24/18 16:03 Temperature 98.2 F Pulse Rate 72 73 71 Respiratory Rate 13 16 17 Blood Pressure 77/44 101/59 155/84 O2 Sat by Pulse Oximetry 100 100 100 12/24/18 16:17 12/24/18 16:20 12/24/18 16:22 Temperature 98.2 F Pulse Rate 70 66 66 Respiratory Rate 19 17 15 Blood Pressure 155/97 160/86 160/86 O2 Sat by Pulse Oximetry 100 100 100 12/24/18 16:31 12/24/18 16:32 12/24/18 16:35 Temperature Pulse Rate 67 69 Respiratory Rate 14 15 Blood Pressure 119/72 142/78 O2 Sat by Pulse Oximetry 100 100 99 12/24/18 16:36 12/24/18 16:47 12/24/18 17:02 Temperature 97.7 F Pulse Rate 70 72 73 Respiratory Rate 15 21 16 Blood Pressure 142/78 111/73 131/77 O2 Sat by Pulse Oximetry 99 100 100 12/24/18 17:17 12/24/18 17:32 12/24/18 17:47 Temperature Pulse Rate 80 73 68 Respiratory Rate 15 13 12 Blood Pressure 112/70 107/67 87/52 O2 Sat by Pulse Oximetry 100 100 100 12/24/18 18:02 12/24/18 18:17 12/24/18 18:32 Temperature Pulse Rate 73 72 67 Respiratory Rate 16 14 16 Blood Pressure 98/58 90/56 86/54 O2 Sat by Pulse Oximetry 100 100 99 12/24/18 18:33 12/24/18 18:47 12/24/18 18:51 Temperature 98.2 F Pulse Rate 67 72 70 Respiratory Rate 13 15 17 Blood Pressure 106/64 106/64 O2 Sat by Pulse Oximetry 100 100 100 12/24/18 18:52 12/24/18 19:02 12/24/18 19:17 Temperature Pulse Rate 69 68 72 Respiratory Rate 15 13 16 Blood Pressure 103/66 99/63 119/73 O2 Sat by Pulse Oximetry 100 100 100 12/24/18 19:32 12/24/18 19:47 12/24/18 19:52 Temperature Pulse Rate 66 66 Respiratory Rate 14 14 Blood Pressure 98/62 94/60 O2 Sat by Pulse Oximetry 100 98 99 12/24/18 20:00 12/24/18 20:02 12/24/18 20:03 Temperature 98.2 F Pulse Rate 67 66 78 Respiratory Rate 12 13 16 Blood Pressure 98/58 92/59 O2 Sat by Pulse Oximetry 98 98 100 12/24/18 20:17 12/24/18 20:32 12/24/18 20:47 Temperature Pulse Rate 67 66 66 Respiratory Rate 13 12 12 Blood Pressure 103/63 96/58 98/60 O2 Sat by Pulse Oximetry 99 99 100 12/24/18 21:02 12/24/18 21:17 12/24/18 21:32 Temperature Pulse Rate 71 75 77 Respiratory Rate 17 14 28 H Blood Pressure 104/67 112/72 106/64 O2 Sat by Pulse Oximetry 100 100 100 12/24/18 21:47 12/24/18 22:00 12/24/18 22:02 Temperature Pulse Rate 76 75 76 Respiratory Rate 18 15 20 Blood Pressure 110/65 111/66 O2 Sat by Pulse Oximetry 100 100 100 12/24/18 22:17 12/24/18 22:32 12/24/18 22:47 Temperature Pulse Rate 72 76 69 Respiratory Rate 0 L 17 15 Blood Pressure 105/61 97/58 88/51 O2 Sat by Pulse Oximetry 98 99 99 12/24/18 22:48 12/24/18 23:02 12/24/18 23:17 Temperature Pulse Rate 69 69 70 Respiratory Rate 15 12 12 Blood Pressure 86/52 85/53 O2 Sat by Pulse Oximetry 99 100 100 12/24/18 23:32 12/24/18 23:47 12/25/18 00:00 Temperature 98.8 F Pulse Rate 73 67 70 Respiratory Rate 12 12 11 L Blood Pressure 99/56 93/56 86/52 O2 Sat by Pulse Oximetry 100 98 99 12/25/18 00:02 12/25/18 00:03 12/25/18 00:17 Temperature Pulse Rate 68 69 67 Respiratory Rate 14 14 13 Blood Pressure 97/52 91/54 O2 Sat by Pulse Oximetry 99 96 100 12/25/18 00:32 12/25/18 00:47 12/25/18 01:02 Temperature Pulse Rate 66 65 66 Respiratory Rate 16 11 L 12 Blood Pressure 96/60 86/51 81/51 O2 Sat by Pulse Oximetry 99 98 98 12/25/18 01:17 12/25/18 01:32 12/25/18 01:47 Temperature Pulse Rate 65 67 64 Respiratory Rate 9 L 10 L 14 Blood Pressure 98/61 101/59 88/56 O2 Sat by Pulse Oximetry 99 100 98 12/25/18 01:54 12/25/18 02:00 12/25/18 02:02 Temperature Pulse Rate 64 62 64 Respiratory Rate 13 9 L 11 L Blood Pressure 88/56 91/52 O2 Sat by Pulse Oximetry 97 99 98 12/25/18 02:17 12/25/18 02:32 12/25/18 02:47 Temperature Pulse Rate 61 71 61 Respiratory Rate 12 14 15 Blood Pressure 92/52 91/60 92/54 O2 Sat by Pulse Oximetry 99 100 100 12/25/18 03:02 12/25/18 03:17 12/25/18 03:18 Temperature Pulse Rate 61 65 71 Respiratory Rate 10 L 8 L 5 L Blood Pressure 88/50 105/65 O2 Sat by Pulse Oximetry 99 100 95 12/25/18 03:32 12/25/18 03:34 12/25/18 03:47 Temperature 97.3 F L Pulse Rate 65 61 61 Respiratory Rate 6 L 10 L 6 L Blood Pressure 104/63 88/50 97/59 O2 Sat by Pulse Oximetry 100 99 100 12/25/18 04:00 12/25/18 04:02 12/25/18 04:13 Temperature Pulse Rate 63 67 62 Respiratory Rate 7 L 10 L 9 L Blood Pressure 85/51 96/58 O2 Sat by Pulse Oximetry 100 100 100 12/25/18 04:17 12/25/18 04:32 12/25/18 04:47 Temperature Pulse Rate 62 70 69 Respiratory Rate 10 L 14 2 L Blood Pressure 94/59 120/69 121/77 O2 Sat by Pulse Oximetry 100 100 100 12/25/18 05:02 12/25/18 05:17 12/25/18 05:32 Temperature Pulse Rate 77 64 67 Respiratory Rate 15 15 10 L Blood Pressure 122/75 100/59 119/69 O2 Sat by Pulse Oximetry 100 100 100 12/25/18 05:47 12/25/18 06:00 12/25/18 06:02 Temperature Pulse Rate 68 65 63 Respiratory Rate 6 L 9 L 12 Blood Pressure 97/62 100/65 O2 Sat by Pulse Oximetry 100 100 100 12/25/18 06:17 12/25/18 06:32 12/25/18 06:47 Temperature Pulse Rate 62 62 62 Respiratory Rate 11 L 12 11 L Blood Pressure 89/56 87/53 100/60 O2 Sat by Pulse Oximetry 100 100 100 12/25/18 07:02 12/25/18 07:17 12/25/18 07:32 Temperature Pulse Rate 67 62 62 Respiratory Rate 12 11 L 11 L Blood Pressure 109/69 101/63 101/61 O2 Sat by Pulse Oximetry 100 100 100 12/25/18 07:47 12/25/18 08:00 12/25/18 08:02 Temperature 97.9 F 97.9 F Pulse Rate 62 62 62 Respiratory Rate 11 L 11 L 11 L Blood Pressure 99/60 91/55 91/55 O2 Sat by Pulse Oximetry 100 100 100 12/25/18 08:17 12/25/18 08:32 12/25/18 08:40 Temperature Pulse Rate 65 70 Respiratory Rate 7 L 11 L Blood Pressure 105/63 116/72 O2 Sat by Pulse Oximetry 100 100 100 12/25/18 09:02 12/25/18 10:02 12/25/18 10:32 Temperature Pulse Rate 71 68 74 Respiratory Rate 21 16 17 Blood Pressure 128/74 117/76 116/73 O2 Sat by Pulse Oximetry 100 100 100 12/25/18 11:02 12/25/18 11:32 12/25/18 12:04 Temperature Pulse Rate 72 69 70 Respiratory Rate 18 20 Blood Pressure 122/77 125/77 O2 Sat by Pulse Oximetry 100 Laboratory Results - last 24 hr 12/24/18 12/24/18 12/24/18 00:21 01:57 16:25 WBC RBC Hgb Hct MCV MCH MCHC RDW Std Deviation Plt Count MPV Immature Gran % (Auto) Neut % (Auto) Lymph % (Auto) Haines % (Auto) Eos % (Auto) Baso % (Auto) Immature Gran # (Auto) Neut # (Auto) Lymph # (Auto) Haines # (Auto) Eos # (Auto) Baso # (Auto) Segmented Neutrophils Lymphocytes Monocytes Eosinophils Large Platelets Anisocytosis Microcytosis Target Cells Sodium Potassium Chloride Carbon Dioxide Anion Gap BUN Creatinine Estimated GFR/1.73 m2 BUN/Creatinine Ratio Glucose POC Glucose 125 H D Calculated Osmolality Calcium Iron TIBC % Saturation Unsat Iron Binding Ferritin Total Bilirubin AST ALT Alkaline Phosphatase Total Protein Albumin Globulin Albumin/Globulin Ratio Plasma Lactate Tumor Marker AFP CA 125 Antigen Vitamin B12 Folate Ur Chlamydia/GC DNA SEE COMMENTS Hepatitis Panel Blood Type A POSITIVE Antibody Screen NEGATIVE Crossmatch See Detail 12/24/18 12/24/18 12/24/18 16:28 16:28 16:28 WBC 11.10 H RBC 4.92 Hgb 8.6 L D Hct 30.8 L D MCV 62.6 L MCH 17.5 L MCHC 27.9 L RDW Std Deviation 27.8 H Plt Count 631 H MPV Not Reportable Immature Gran % (Auto) 0.0 Neut % (Auto) 72.5 Lymph % (Auto) 16.7 L Haines % (Auto) 9.1 Eos % (Auto) 1.2 Baso % (Auto) 0.5 Immature Gran # (Auto) 0.00 Neut # (Auto) 8.06 H Lymph # (Auto) 1.85 Haines # (Auto) 1.01 H Eos # (Auto) 0.13 Baso # (Auto) 0.05 Segmented Neutrophils 68 Lymphocytes 23 Monocytes 8 Eosinophils 1 Large Platelets OCCASIONAL Anisocytosis 1+ Microcytosis 1+ Target Cells OCCASIONAL Sodium Potassium Chloride Carbon Dioxide Anion Gap BUN Creatinine Estimated GFR/1.73 m2 BUN/Creatinine Ratio Glucose POC Glucose Calculated Osmolality Calcium Iron TIBC % Saturation Unsat Iron Binding Ferritin Total Bilirubin AST ALT Alkaline Phosphatase Total Protein Albumin Globulin Albumin/Globulin Ratio Plasma Lactate 1.7 Tumor Marker AFP CA 125 Antigen Vitamin B12 Folate Ur Chlamydia/GC DNA Hepatitis Panel SEE COMMENTS Blood Type Antibody Screen Crossmatch 12/24/18 12/24/18 12/24/18 16:28 16:28 20:04 WBC RBC Hgb Hct MCV MCH MCHC RDW Std Deviation Plt Count MPV Immature Gran % (Auto) Neut % (Auto) Lymph % (Auto) Haines % (Auto) Eos % (Auto) Baso % (Auto) Immature Gran # (Auto) Neut # (Auto) Lymph # (Auto) Haines # (Auto) Eos # (Auto) Baso # (Auto) Segmented Neutrophils Lymphocytes Monocytes Eosinophils Large Platelets Anisocytosis Microcytosis Target Cells Sodium Potassium Chloride Carbon Dioxide Anion Gap BUN Creatinine Estimated GFR/1.73 m2 BUN/Creatinine Ratio Glucose POC Glucose 151 H Calculated Osmolality Calcium Iron TIBC % Saturation Unsat Iron Binding Ferritin Total Bilirubin AST ALT Alkaline Phosphatase Total Protein Albumin Globulin Albumin/Globulin Ratio Plasma Lactate Tumor Marker AFP SEE COMMENTS CA 125 Antigen SEE COMMENTS Vitamin B12 Folate Ur Chlamydia/GC DNA Hepatitis Panel Blood Type Antibody Screen Crossmatch 12/25/18 12/25/18 12/25/18 04:49 05:00 05:00 WBC 9.39 RBC 4.79 Hgb 9.1 L Hct 31.1 L MCV 64.9 L MCH 19.0 L MCHC 29.3 L RDW Std Deviation 27.3 H Plt Count 476 H MPV Immature Gran % (Auto) Neut % (Auto) Lymph % (Auto) Haines % (Auto) Eos % (Auto) Baso % (Auto) Immature Gran # (Auto) Neut # (Auto) Lymph # (Auto) Haines # (Auto) Eos # (Auto) Baso # (Auto) Segmented Neutrophils Lymphocytes Monocytes Eosinophils Large Platelets Anisocytosis Microcytosis Target Cells Sodium 144 Potassium 3.5 Chloride 110 H Carbon Dioxide 21 L Anion Gap 13 BUN 10 Creatinine 0.5 Estimated GFR/1.73 m2 > 60 BUN/Creatinine Ratio 20 Glucose 160 H D POC Glucose 161 H Calculated Osmolality 289 Calcium 7.1 L D Iron TIBC % Saturation Unsat Iron Binding Ferritin Total Bilirubin 0.38 AST 12 ALT 7 L Alkaline Phosphatase 54 Total Protein 5.7 L Albumin 3.0 L Globulin 2.7 Albumin/Globulin Ratio 1.1 Plasma Lactate Tumor Marker AFP CA 125 Antigen Vitamin B12 Folate Ur Chlamydia/GC DNA Hepatitis Panel Blood Type Antibody Screen Crossmatch 12/25/18 12/25/18 12/25/18 10:35 10:35 10:35 WBC RBC Hgb Hct MCV MCH MCHC RDW Std Deviation Plt Count MPV Immature Gran % (Auto) Neut % (Auto) Lymph % (Auto) Haines % (Auto) Eos % (Auto) Baso % (Auto) Immature Gran # (Auto) Neut # (Auto) Lymph # (Auto) Haines # (Auto) Eos # (Auto) Baso # (Auto) Segmented Neutrophils Lymphocytes Monocytes Eosinophils Large Platelets Anisocytosis Microcytosis Target Cells Sodium Potassium Chloride Carbon Dioxide Anion Gap BUN Creatinine Estimated GFR/1.73 m2 BUN/Creatinine Ratio Glucose POC Glucose Calculated Osmolality Calcium Iron 20 L TIBC 332 % Saturation 6 Unsat Iron Binding 312 Ferritin 18 Total Bilirubin AST ALT Alkaline Phosphatase Total Protein Albumin Globulin Albumin/Globulin Ratio Plasma Lactate Tumor Marker AFP CA 125 Antigen Vitamin B12 767 Folate 27.3 Ur Chlamydia/GC DNA Hepatitis Panel Blood Type Antibody Screen Crossmatch 12/25/18 10:55 WBC RBC Hgb Hct MCV MCH MCHC RDW Std Deviation Plt Count MPV Immature Gran % (Auto) Neut % (Auto) Lymph % (Auto) Haines % (Auto) Eos % (Auto) Baso % (Auto) Immature Gran # (Auto) Neut # (Auto) Lymph # (Auto) Haines # (Auto) Eos # (Auto) Baso # (Auto) Segmented Neutrophils Lymphocytes Monocytes Eosinophils Large Platelets Anisocytosis Microcytosis Target Cells Sodium Potassium Chloride Carbon Dioxide Anion Gap BUN Creatinine Estimated GFR/1.73 m2 BUN/Creatinine Ratio Glucose POC Glucose 196 H Calculated Osmolality Calcium Iron TIBC % Saturation Unsat Iron Binding Ferritin Total Bilirubin AST ALT Alkaline Phosphatase Total Protein Albumin Globulin Albumin/Globulin Ratio Plasma Lactate Tumor Marker AFP CA 125 Antigen Vitamin B12 Folate Ur Chlamydia/GC DNA Hepatitis Panel Blood Type Antibody Screen Crossmatch Contacted [facility] Nuclear Control Operator-oncology via [facility]IST line. Transfer accepted for higher level of care. Plan discussed with patient who agrees. Melina Jones DO
[2018-12-25 22:03] VITALS: BP 156/85
== END 2018-12-25 22:55 | disposition home or self-care (01) | DRG 811 ==
LOC: P.ED 01:09 → P.MEDSURG 08:32 → 3N 12-25 12:01
PROVIDERS: ADMIT Internal Medicine